=== PATIENT | male | born 1965 | race Caucasian/White ===

== ENCOUNTER 2016-09-11 23:12 | Emergency (ER) | payer OTHER ==
--- NOTE | 2016-09-12 01:06 | ED ORDER SUMMARY ---
..... Patient: MIROSLAVA YOUNG OrderSheet [facility] VisitID: [id number] [place] [address] 51y, M Registration Date/Time: 09/11/2016 ORDER SHEET Weight: 95.2 kg (stated) Allergies: No Known Drug Allergy GENERAL ORDERS: EKG - ER Stat (23:21 09/11/2016 Domitila R.NLa per protocol) (23:27 Maninder) Chest 2V Urgent (23:39 09/11/2016 Perla NULL) (Ack 23:49 Kelly) (23:52 James) Cardiac Panel Stat (:39 09/11/2016 Perla NULL) (Ack 23:49 Kelly) D-Dimer Urgent (23:39 09/11/2016 Perla NULL) (Ack 23:49 Kelly) MEDICATION ORDERS: IV FLUIDS: IV Saline Lock (23:39 09/11/2016 Perla NULL) (0:04 Domitila R.N.) Toradol IV 30 mg (NOW) (01:05 09/12/2016 Perla NULL) (1:20 Domitila R.N.) ORDER SHEET NOTES: [Electronically signed by Michelet Golden R.N. (03:00 09/12/2016)] [Electronically signed by Jet Lyles MD (20:00 09/13/2016)] [Electronically locked/signed by Michelet Golden R.N. (03:00 09/12/2016)]
--- NOTE | 2016-09-12 01:06 | ED CLINICAL REPORT ---
Clinical Report - Physicians/Mid Levels [facility] [address] [place] [address] 09/11/2016 23:15 Patient: MIROSLAVA YOUNG Time Seen: 23:28 Sep 11 2016. Arrived- By private vehicle. Historian- patient. CPT: ER phys charges level 4 plus (#[id number]). EKG interpretation (#[id number]). HISTORY OF PRESENT ILLNESS Chief Complaint: CHEST PAIN. It is described as aching, sharp and "pain" and it is described as located in the right chest area. At its maximum, severity described as moderate. When seen in the E.D., severity described as moderate. Modifying factors- (Pain worse if tries to sit up or take a deep breath.). This started just prior to arrival Arrived by private vehicle. ( Pt reports sudden onset CP while brushing his teeth. Pain is on R side below ribs and radiates toward his back. pain is worse with respiration). This started just prior to arrival. He has had difficulty breathing. Onset during light activity. No nausea, vomiting, difficulty breathing or diaphoresis. (Pain started in the upper, right , posterior thorax and then progressed to the front. Pain is sharp.). Similar symptoms previously: None. Recent medical care: Not recently seen/assessed. REVIEW OF SYSTEMS No fever, chills, cough, pedal edema or calf pain. No fainting episodes, headache, sore throat, abdominal pain or black stools. No difficulty with urination, skin rash, enlarged lymph nodes or joint pain. All systems otherwise negative, except as recorded above. PAST HISTORY Hyperlipidemia. Left ankle surgery 2 months ago. High triglycerides. No history of coronary artery disease, heart disease, lung disease, neurological disease or GI disease. No history of congestive heart failure, heart rhythm problems, pulmonary embolism, hypertension or diabetes mellitus. Surgeries: No prior cardiac procedures. Medications: None. Allergies: No Known Drug Allergy. SOCIAL HISTORY Never smoker. Alcohol use. No drug use. FAMILY HISTORY Negative. ADDITIONAL NOTES The nursing notes have been reviewed. PHYSICAL EXAM Vital Signs: 09/11/2016 23:17 BP: 136/94. HR: 59. RR: 18. O2 saturation: 99%. Temp: 97.3 F. Appearance: Alert. Anxious. Patient in mild distress. Eyes: Eyes normal inspection. ENT: Pharynx normal. Neck: Normal inspection. Neck supple. CVS: Normal heart rate and rhythm. Heart sounds normal. Pulses normal. Respiratory: No respiratory distress. Chest pain reproducible with palpation of the costal cartilage and anterior chest wall, with movement of the trunk and with deep breathing. Breath sounds normal. Abdomen: Soft and nontender. Back: (positive palpation tenderness of the right parathoracic soft tissue at the level of T5-6. This can be followed around with the rib anteriorly. This reproduces the pain.). Skin: Skin warm. Normal skin color. No rash. Extremities: Extremities exhibit normal ROM. No calf tenderness. No lower extremity edema. Neuro: Oriented X 3. No motor deficit. No sensory deficit. Reflexes normal. LABS, X-RAYS, AND EKG EKG: No acute ischemia. Normal sinus rhythm. Rate: 56. Bradycardia. Normal P waves. Normal AGUSTIN. Normal QRS complex. Normal axis. Normal ST and T waves. Prior EKG unavailable. The study has been interpreted contemporaneously. The study has been independently viewed by me. The EKG appears to be a good tracing. Chest X-ray: Normal Chest X-Ray. Laboratory Tests: CBC w Diff: (ANNELIESE: 09/11/2016 23:20) ( MsgRcvd 09/11/2016 23:52) Final results Test Result Flag Units (Reference) WHITE BLOOD COUNT 11.7 H K/uL (4.5-11.5) RED BLOOD COUNT 4.74 M/uL (4.50-5.90) HEMOGLOBIN 14.9 gm/dL (13.5-17.5) HEMATOCRIT 44.0 % (41.0-53.0) MEAN CELL VOLUME 93 fL (80-100) MEAN CORPUSCULAR HGB 31 pg (26-34) MEAN CORPUSCULAR HGB CONC 34 g/dL (31-37) RED CELL DISTRIBUTION WIDTH 12.3 % (11.6-14.8) PLATELET COUNT 301 K/uL (150-400) LYMPH % 21.9 L % (25-40) MONO % 5.6 % (3-14) GRANULOCYTE % 72.5 [id number]: (ANNELIESE: 09/11/2016 23:20) ( MsgRcvd 09/12/2016 00:19) Final results Test Result Flag Units (Reference) D-DIMER QUANTITATIVE < 0.27 L ug/mLFEU (0.27-0.52) The primary value of this quantitative assay relates toits negative predictive value (i.e. exclusion) of pulmonaryembolism/deep vein thrombosis/DIC.Elevated levels of d-dimer may also occur with:, age, cancer, inflammation, liver disease,post-op, infection, hematoma, coronary disease, peripheralarteriopathy, bleeding disorders and thrombolytic treatment.Results should be correlated with other clinical andradiological data.Testing Methodology: Latex Immunoassay CHEM 13 PANEL: (ANNELIESE: 09/11/2016 23:20) ( MsgRcvd 09/12/2016 00:22) Final results Test Result Flag Units (Reference) GLUCOSE 130 H mg/dL (70-110) BUN 15 mg/dL (7-18) CREATININE 1.3 mg/dL (0.6-1.3) Estimated GFR >60 mL/min Estimated GFR- >60 mL/min Note: Persistent reduction over 3 months in eGFR<60 mL/min/1.73 m2 defines CKD. Patients with eGFR values>=60 mL/min/1.73 m2 may also have CKD if evidence ofpersistent proteinuria. Additional information may be foundat www.kidney.org. SODIUM 141 mmol/L (136-145) POTASSIUM 3.7 mmol/L (3.5-5.1) CHLORIDE 103 mmol/L (98-107) CARBON DIOXIDE 29 mmol/L (21-32) CALCIUM 9.3 mg/dL (8.5-10.1) TOTAL PROTEIN 8.5 H g/dL (6.4-8.2) ALBUMIN 4.2 g/dL (3.3-5.0) BILIRUBIN, TOTAL 0.6 mg/dL (0.0-1.0) ALKALINE PHOSPHATASE 84 U/L (46-116) AST (SGOT) 25 U/L (15-37) ALT (SGPT) 30 U/L (12-78) CPK 266 H U/L (24-260) MAGNESIUM 2.4 mg/dL (1.8-2.4) TROPONIN I <0.05 ng/mL (0.00-1.5) TROPONIN REFERENCE RANGE:<0.1 NEGATIVE0.1-1.5 INDETERMINANT>1.5 POSITIVE CK-MB 0.8 ng/mL (0.5-3.2) %CKMB 0.3 % (0.0-4.0) . PROGRESS AND PROCEDURES Course of Care: Heplock Toradol 30 mg IV. Patient is stable. Symptoms better. Patient/family counseled. Disposition: Discharged. Condition: stable. CLINICAL IMPRESSION Chest wall pain .12 lead EKG performed. INSTRUCTIONS No strenuous activity. Rest. Warnings: Further evaluation is necessary. GENERAL WARNINGS: Return or contact your physician immediately if your condition worsens or changes unexpectedly, if not improving as expected, or if other problems arise. Prescription Medications: Ibuprofen 600mg tablets: take 1 tablet orally every 8 hours as needed for pain. Dispense thirty (30). No refills. Flexeril 10 mg: Take 1 orally every 8 hours as needed for muscle spasm. Dispense twenty (20). No refills. Substitution is permissible. Follow-up: Follow up with your doctor in three days if not better. Understanding of the discharge instructions verbalized by patient. Discharge instructions reviewed with and understanding was verbalized by spouse. (Electronically signed by Jet Lyles MD 09/13/2016 20:00)
--- NOTE | 2016-09-12 01:06 | ED NURSING NOTES ---
Clinical Report - Nurses [facility] [place] [address] 09/11/2016 23:15 Patient: MIROSLAVA YOUNG TRIAGE Triage time 23:Sep 11 2016. Acuity: LEVEL 3. Chief Complaint: CHEST PAIN. --23:20 Michelet Golden R.N. 23:17 09/11/16. BP: 136/94. HR: 59. RR: 18. O2 saturation: 99%. Temp: 97.3 F. Pain level now 7/10. --23:20 Michelet Golden R.N. Weight: 95.2 kg stated. Height/Length: 72 inches Per Patient. BMI: 28.5. --23:19 Michelet Golden R.N. Medications None. --23:19 Michelet Golden R.N. Allergies No Known Drug Allergy. --23:19 Michelet Golden R.N. History Arrived by private vehicle. ( Pt reports sudden onset CP while brushing his teeth. Pain is on R side below ribs and radiates toward his back. pain is worse with respiration). This started just prior to arrival. He has had difficulty breathing. 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 SOCIAL HX: Never smoker. Alcohol use; consumes beer daily. No drug use. --23:20 Michelet Golden R.N. Interventions ID band on patient. To treatment room. --23:20 Michelet Golden R.N. PHYSICAL ASSESSMENT GENERAL / NEURO / PSYCH: Alert. Oriented X 4. Appears in pain. RESPIRATORY: Respirations not labored. Breath sounds within normal limits. GI / : Abdomen soft. EXTREMITIES: No lower extremity edema. SKIN: Skin is warm and dry. Skin is non-tender. --23:20 Michelet Golden R.N. NURSING PROGRESS NOTES fishing guide and pulse oximeter placed on patient. Patient gowned. Call light placed in reach. Side rails up x 1. Bed placed in lowest position. --23:20 Michelet Golden R.N. EKG time: (2326 PM). EKG was ordered, performed by a tech and shown to the ED physician. --23:29 Abigail Blackwood 00:04 09/12/2016 Site #1 started via IV in the right antecubital space with an 20g angiocath; three attempts. Blood drawn. Labeled in the presence of the patient and sent to the lab. Saline lock flushed. --00:04 Michelet Golden R.N. 01:20 09/12/2016 Toradol IVP 30 mg given over 2 minute(s) via site #1. IV patency established. IV site checked: no pain, redness, or swelling. IV flushed thoroughly pre- and post-medication administration. IVP given by RN. --01:20 Michelet Golden R.N. DISPOSITION / DISCHARGE 01:15 09/12/2016 Site #1 removed upon discharge. Catheter intact. Bandaid applied. --01:24 Leena Norton R.N. Departure time: 0120 AM. Condition at departure: improved and stable. The goals identified in the patient's plan of care were met. No learning barriers present. Discharge instructions provided and reviewed with the patient and spouse. Reviewed medication(s) side effects, precautions, dosing and course information. Prescription(s) given to the patient. Work note given. Patient verbalized understanding. Written instructions provided in Nauruan. No activity restrictions. The patient was discharged by the physician. He was discharged home and accompanied by spouse. He left the Emergency Department ambulatory and via private vehicle. Patient driving. FALL RISK ASSESSMENT: Fall risk assessment completed. No fall risk identified. --:24 Leena Norton R.N. 01:15 09/12/16. BP: 123/88 (regular adult cuff) taken on the left arm, via an automated monitor, while lying. HR: 59. RR: 14. O2 saturation: 98% on room air. Temp: 98 F (oral). Pain level now: 09/22. --:24 Leena Norton R.N. Locked/Released at 09/12/2016 3:00 by Michelet Golden R.N.
--- NOTE | 2016-09-12 01:06 | ED ORDER SUMMARY ---
..... Patient: MIROSLAVA YOUNG OrderSheet [facility] VisitID: [id number] [place] [address] 51y, M Registration Date/Time: 09/11/2016 ORDER SHEET Weight: 95.2 kg (stated) Allergies: No Known Drug Allergy GENERAL ORDERS: EKG - ER Stat (23:21 09/11/2016 Domitila R.NLa per protocol) (23:27 Maninder) Chest 2V Urgent (23:39 09/11/2016 Perla NULL) (Ack 23:49 Kelly) (23:52 James) Cardiac Panel Stat (:39 09/11/2016 Perla NULL) (Ack 23:49 Kelly) D-Dimer Urgent (23:39 09/11/2016 Perla NULL) (Ack 23:49 Kelly) MEDICATION ORDERS: IV FLUIDS: IV Saline Lock (23:39 09/11/2016 Perla NULL) (0:04 Domitila R.N.) Toradol IV 30 mg (NOW) (01:05 09/12/2016 Perla NULL) (1:20 Domitila R.N.) ORDER SHEET NOTES: [Electronically signed by Michelet Golden R.N. (03:00 09/12/2016)] [Electronically signed by Jet Lyles MD (20:00 09/13/2016)] [Electronically locked/signed by Michelet Golden R.N. (03:00 09/12/2016)]
--- NOTE | 2016-09-12 01:06 | ED NURSING NOTES ---
Clinical Report - Nurses [facility] [place] [address] 09/11/2016 23:15 Patient: MIROSLAVA YOUNG TRIAGE Triage time 23:Sep 11 2016. Acuity: LEVEL 3. Chief Complaint: CHEST PAIN. --23:20 Michelet Golden R.N. 23:17 09/11/16. BP: 136/94. HR: 59. RR: 18. O2 saturation: 99%. Temp: 97.3 F. Pain level now 7/10. --23:20 Michelet Golden R.N. Weight: 95.2 kg stated. Height/Length: 72 inches Per Patient. BMI: 28.5. --23:19 Michelet Golden R.N. Medications None. --23:19 Michelet Golden R.N. Allergies No Known Drug Allergy. --23:19 Michelet Golden R.N. History Arrived by private vehicle. ( Pt reports sudden onset CP while brushing his teeth. Pain is on R side below ribs and radiates toward his back. pain is worse with respiration). This started just prior to arrival. He has had difficulty breathing. 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 SOCIAL HX: Never smoker. Alcohol use; consumes beer daily. No drug use. --23:20 Michelet Golden R.N. Interventions ID band on patient. To treatment room. --23:20 Michelet Golden R.N. PHYSICAL ASSESSMENT GENERAL / NEURO / PSYCH: Alert. Oriented X 4. Appears in pain. RESPIRATORY: Respirations not labored. Breath sounds within normal limits. GI / : Abdomen soft. EXTREMITIES: No lower extremity edema. SKIN: Skin is warm and dry. Skin is non-tender. --23:20 Michelet Golden R.N. 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 Patient gowned. Call light placed in reach. Side rails up x 1. Bed placed in lowest position. --23:20 Michelet Golden R.N. EKG time: (2326 PM). EKG was ordered, performed by a tech and shown to the ED physician. --23:29 Abigail Blackwood 00:04 09/12/2016 Site #1 started via IV in the right antecubital space with an 20g angiocath; three attempts. Blood drawn. Labeled in the presence of the patient and sent to the lab. Saline lock flushed. --00:04 Michelet Golden R.N. 01:20 09/12/2016 Toradol IVP 30 mg given over 2 minute(s) via site #1. IV patency established. IV site checked: no pain, redness, or swelling. IV flushed thoroughly pre- and post-medication administration. IVP given by RN. --01:20 Michelet Golden R.N. DISPOSITION / DISCHARGE 01:15 09/12/2016 Site #1 removed upon discharge. Catheter intact. Bandaid applied. --01:24 Leena Norton R.N. Departure time: 0120 AM. Condition at departure: improved and stable. The goals identified in the patient's plan of care were met. No learning barriers present. Discharge instructions provided and reviewed with the patient and spouse. Reviewed medication(s) side effects, precautions, dosing and course information. Prescription(s) given to the patient. Work note given. Patient verbalized understanding. Written instructions provided in Kosovan. No activity restrictions. The patient was discharged by the physician. He was discharged home and accompanied by spouse. He left the Emergency Department ambulatory and via private vehicle. Patient driving. FALL RISK ASSESSMENT: Fall risk assessment completed. No fall risk identified. --:24 Leena Notron R.N. 01:15 09/12/16. BP: 123/88 (regular adult cuff) taken on the left arm, via an automated monitor, while lying. HR: 59. RR: 14. O2 saturation: 98% on room air. Temp: 98 F (oral). Pain level now: 09/22. --:24 Leena Norton R.N. Locked/Released at 09/12/2016 3:00 by Michelet Golden R.N.
--- NOTE | 2016-09-12 05:59 | DIAGNOSTIC IMAGING REPORT ---
PROCEDURE: XR CHEST 2 VIEW INDICATION: CHEST PAIN TECHNIQUE: PA and lateral views. COMPARISON: None. FINDINGS: Lungs are clear. Heart and mediastinum are normal. Thorax is normal. IMPRESSION: 1. Negative chest.
--- NOTE | 2016-09-13 20:01 | ED MAR SUMMARY ---
..... Medication Administration Record [facility] [address] [place] [address] Patient: MIROSLAVA YOUNG Visit ID: [id number] 51y, M Weight: 95.2 kg Height/Length: 72 in BMI: 28.5 ALLERGIES: No Known Drug Allergy Given 01:20 09/12/2016 Michelet Golden RLaNLa Medication Administered: TORADOL [IVP], Dose: 30 mg IVP over 2 minute(s), Site: #1. Medication Ordered: Toradol IV 30 mg (NOW).
--- NOTE | 2016-09-13 20:01 | ED DISCHARGE INSTRUCTIONS ---
Patient: MIROSLAVA YOUNG General Instructions [facility] VisitID: [id number] [place] [address] 51y, M Registration Date/Time: 09/11/2016 Chest wall pain .12 lead EKG performed. INSTRUCTIONS No strenuous activity. Rest. Warnings: Further evaluation is necessary. GENERAL WARNINGS: Return or contact your physician immediately if your condition worsens or changes unexpectedly, if not improving as expected, or if other problems arise. Prescription Medications: Ibuprofen 600mg tablets: take 1 tablet orally every 8 hours as needed for pain. Dispense thirty (30). No refills. Flexeril 10 mg: Take 1 orally every 8 hours as needed for muscle spasm. Dispense twenty (20). No refills. Substitution is permissible. Follow-up: Follow up with your doctor in three days if not better. Understanding of the discharge instructions verbalized by patient. Discharge instructions reviewed with and understanding was verbalized by spouse. ADDITIONAL INFORMATION Chest Wall Pain: Costochondritis The chest pain that you have had today is caused by Costochondritis. This condition is due to an inflammation of the cartilage joining the ribs to the breastbone. It is not caused by heart or lung problems. Although the exact cause for costochondritis is not known, it often occurs during times of emotional stress. It can be painful, but it is not dangerous. It usually disappears within one to two weeks, but may recur. Rarely, a more serious condition may cause symptoms similar to costochondritis; therefore, watch for the warning signs listed below. Home Care: If you feel that emotional stress is a cause of your condition, try to identify sources of that stress. It may not be obvious! Learn ways to deal with the stress in your life such as regular exercise, muscle relaxation, meditation, or simply taking time out for yourself. For more information about this, consult your doctor or go to a local bookstore and review books and tapes available on the subject of stress reduction. You may use acetaminophen (Tylenol) or ibuprofen (Motrin, Advil) to control pain, unless another pain medicine was prescribed. [ NOTE: If you have liver disease or ever had a stomach ulcer, talk with your doctor before using these medicines.] The use of heat (hot wet compress or heating pad) with or without local analgesic creams (Deep Heat Rub, Frankie Juan) will be helpful to reduce pain. Follow Up with your doctor as directed or sooner if you do not start to improve within the next two days. Get Prompt Medical Attention if any of the following occur: A change in the type of pain: if it feels different, becomes more severe, lasts longer, or spreads into your shoulder, arm, neck, jaw or back Shortness of breath or increased pain with breathing Weakness, dizziness, or fainting Cough with dark colored sputum (phlegm) or blood Abdominal pain Dark red or black stools Fever of 100.4F (38C) or higher, or as directed by your healthcare provider You have been given the following additional information: Chest Wall Pain, Costochondritis No strenuous activity. Rest. (Electronically signed by Jet Lyles MD 09/13/2016 20:00)
--- NOTE | 2016-09-13 20:01 | ED MED RECONCILIATION SUMMARY ---
Patient: MIROSLAVA YOUNG Medication Reconciliation Report [facility] VisitID: [id number] [address] [place] [address] 51y, M Registration Date/Time: 09/11/2016 Weight: 95.2 kg Height/Length: 72 in. BMI: 28.5 ALLERGIES: No Known Drug Allergy The patient's Home Medications are listed below: NONE. The source(s) of the original Home Medication information: Not obtained. The following Medications were given to the patient in the Emergency Department: Toradol [IVP] IVP 30 mg, administered: 09/12/2016 1:20:00 AM The following Medications were prescribed to the patient: Ibuprofen 600mg tablets: take 1 tablet orally every 8 hours as needed for pain. Dispense thirty (30). No refills. -- Jet Lyles MD Flexeril 10 mg: Take 1 orally every 8 hours as needed for muscle spasm. Dispense twenty (20). No refills. Substitution is permissible. -- Jet Lyles MD
--- NOTE | 2016-09-13 20:01 | ED MAR SUMMARY ---
..... Medication Administration Record [facility] [address] [place] [address] Patient: MIROSLAVA YOUNG Visit ID: [id number] 51y, M Weight: 95.2 kg Height/Length: 72 in BMI: 28.5 ALLERGIES: No Known Drug Allergy Given 01:20 09/12/2016 Michelet Golden RLaNLa Medication Administered: TORADOL [IVP], Dose: 30 mg IVP over 2 minute(s), Site: #1. Medication Ordered: Toradol IV 30 mg (NOW).
--- NOTE | 2016-09-13 20:01 | ED MED RECONCILIATION SUMMARY ---
Patient: MIROSLAVA YOUNG Medication Reconciliation Report [facility] VisitID: [id number] [address] [place] [address] 51y, M Registration Date/Time: 09/11/2016 Weight: 95.2 kg Height/Length: 72 in. BMI: 28.5 ALLERGIES: No Known Drug Allergy The patient's Home Medications are listed below: NONE. The source(s) of the original Home Medication information: Not obtained. The following Medications were given to the patient in the Emergency Department: Toradol [IVP] IVP 30 mg, administered: 09/12/2016 1:20:00 AM The following Medications were prescribed to the patient: Ibuprofen 600mg tablets: take 1 tablet orally every 8 hours as needed for pain. Dispense thirty (30). No refills. -- Jet Lyles MD Flexeril 10 mg: Take 1 orally every 8 hours as needed for muscle spasm. Dispense twenty (20). No refills. Substitution is permissible. -- Jet Lyles MD
== END 2016-09-12 01:20 | disposition home or self-care (01) ==
LOC: ED SRH 23:12
DX: R07.89 Other chest pain (principal); E78.5 Hyperlipidemia, unspecified
CPT/HCPCS: 90100; 90616; 90617; 91556; 92610; 92720; 95059